=== PATIENT | female | born 1995 | race African-American/Black ===

== ENCOUNTER 2019-08-06 19:07 | Emergency (ER) | payer SELFPAY ==
[2019-08-06 19:14] VITALS: TEMP 97.9; BMI 33.2
[2019-08-06] MEDS ORDERED: METOCLOPRAMIDE HCL INJECTION 10 MG/2 ML VIAL IVPUSH ONE (19:14)
[2019-08-06] MEDS ORDERED: KETOROLAC TROMETHAMINE 30 MG/1 ML VIAL IVPUSH ONE (19:14)
[2019-08-06] MEDS ORDERED: SODIUM CHLORIDE 1,000 ML IV STA (19:14)
--- NOTE | 2019-08-06 19:14 | PDOC ---
Rapid Medical Evaluation Time Seen by Provider: 08/06/19 19:12 Medical Evaluation: 08/06/19 19:12 CC: "I have a migraine." pain c/w usual migraine PE: No focal findings. Orders: reglan, benadryl, toradol, NS Patient will proceed to ED for continued evaluation. Discharge Disposition - Diagnosis Migraine - Referrals - Patient Instructions - Post Discharge Activity
--- NOTE | 2019-08-06 19:38 | PDOC ---
History of Present Illness - General Chief Complaint: Headache Stated Complaint: MIGRAINE/NAUSEA/VOMITING Time Seen by Provider: 08/06/19 19:12 History Source: Patient - History of Present Illness Initial Comments: 08/06/19 20:08 Chief complaint: Headache Patient is a healthy 24-year-old female with history of migraines who states that she started getting headache earlier this afternoon, patient is vomiting. Patient states this feels similar to prior headaches. Patient denies possibility of , is on control. Patient has no fever. No numbness. GENERAL/CONSTITUTIONAL: No fever, weakness. dizziness HEAD, EYES, EARS, NOSE AND THROAT: No change in vision. No ear pain or discharge. No sore throat. CARDIOVASCULAR: No chest pain RESPIRATORY: No shortness of breath or cough GASTROINTESTINAL: No pain, nausea, vomiting, diarrhea or constipation GENITOURINARY: No dysuria MUSCULOSKELETAL: No neck or back pain SKIN: No rash NEUROLOGIC: No headache, vertigo, loss of consciousness, or loss of sensation. GENERAL: The patient is awake, alert, and fully oriented, in no acute distress. HEAD: Normal with no signs of trauma. EYES: Pupils equal, round and reactive to light, sclera anicteric, conjunctiva clear. ENT: pharynx: no erythema, no exudate, uvula midline NECK: supple CHEST: clear, nontender, rr ABD: soft, nontender BACK: no tenderness or signs of injury EXTREMITIES: Normal range of motion, no edema. NEUROLOGICAL: Normal speech, normal gait. Cranial nerves II through XII grossly intact, no gross focal abnormalities SKIN: Warm, Dry Past History - Past Medical History Allergies/Adverse Reactions: Allergies Allergy/AdvReac Type Severity Reaction Status Date / Time No Known Allergies Allergy Verified 08/06/19 19:14 Asthma: Yes COPD: No - Psycho Social/Smoking Cessation Hx Smoking History: Never smoked *Physical Exam - Vital Signs Last Vital Signs Temp Pulse Resp BP Pulse Ox 97.9 F 80 18 123/74 100 08/06/19 19:11 08/06/19 19:11 08/06/19 19:11 08/06/19 19:11 08/06/19 19:11 Medical Decision Making - Medical Decision Making 08/06/19 20:13 24-year-old female with history of migraines, with typical migraine as per patient, with vomiting. Patient is neurologically intact. Patient will give fluids, Reglan, Toradol and Benadryl and will reassess. 08/06/19 22:01 Patient feels better, ready for discharge home Discussed issues, findings, results, applicable medications and treatments and follow-up. All these were understood and all questions were answered Discharge - Discharge Information Problems reviewed: Yes Clinical Impression/Diagnosis: Migraine Qualifiers: Migraine type: unspecified Status migrainosus presence: without status migrainosus Intractability: not intractable Qualified Code(s): G43.909 - Migraine, unspecified, not intractable, without status migrainosus Condition: Stable Disposition: HOME - Admission No - Follow up/Referral Referrals: Lary Cardoza MD [Primary Care Provider] - Cristofer Lindo MD [Staff Physician] - - Patient Discharge Instructions Patient Printed Discharge Instructions: Migraine -- Adult Additional Instructions: Drink plenty fluids, you can take Motrin 600 mg you have a little bit of a headache. You should follow-up with a neurologist if you headache continues. Return to the ER if worse - Post Discharge Activity
[2019-08-06] MEDS ORDERED: METOCLOPRAMIDE HCL INJECTION 10 MG/2 ML VIAL ONE (19:54)
[2019-08-06] MEDS ORDERED: KETOROLAC TROMETHAMINE 30 MG/1 ML VIAL ONE (19:55)
[2019-08-06 22:40] VITALS: BP 124/74; PULSE 84
== END 2019-08-06 22:10 | disposition home or self-care (01) ==
LOC: JERFT 19:07
PROC: 3E033GC Introduction of Other Therapeutic Substance into Peripheral Vein, Percutaneous Approach (ICD-10-PCS; principal; 2019-08-06)
PROC: 3E033GC Introduction of Other Therapeutic Substance into Peripheral Vein, Percutaneous Approach (ICD-10-PCS; 2019-08-06)
PROC: 3E0333Z Introduction of Anti-inflammatory into Peripheral Vein, Percutaneous Approach (ICD-10-PCS; 2019-08-06)
DX: G43.909 Migraine, unspecified, not intractable, without status migrainosus (principal); Z87.09 Personal history of other diseases of the respiratory system
CPT/HCPCS: 99284-25; J7030